=== PATIENT | female | born 1945 | race African-American/Black ===

== ENCOUNTER 2016-07-02 21:17 | Inpatient (IN) | payer MEDICARE, MEDICAID ==
[~2016-07-02] VITALS: Ht 167.6 cm; Wt 140.2 kg
[~2016-07-02 21:17] MED LIST: AMLO-512 PO; ASPI-1093 PO; ATOR40TA28 PO; BUME1TAB30 PO; DSS100 PO; FURO40 PO; GABA-531 PO; HYDR25TA84 PO; IBUP-1546 PO; IPRNEB IH; ISOS20TA9 PO; METF500T4 PO; METO50 PO; SITA100 PO; TRAM50TA4 PO; VALS160T2 PO
[2016-07-02 21:31] LABS: GLUCOSE,POINT OF CARE 119 MG/DL (70-110)
[2016-07-02] MEDS ORDERED: CLOP75 PO (21:36)
[2016-07-02] MEDS ORDERED: DICL75TA5 PO (21:36)
[2016-07-02] MEDS ORDERED: ALBUTEROL SULFATE 5 MG/ML 20 ML NEB SOLN [BULK] NEB ONE ×2 (21:45→23:45)
[2016-07-02] MEDS ORDERED: IPRATROPIUM BROMIDE 0.5 MG/2.5 ML NEB SOLUTION NEB ONE (21:45)
[2016-07-02 22:16] LABS: HEMATOCRIT 27.2 % (36-46); HEMOGLOBIN 8.8 g/dL (12.0-16.0); MEAN CORPUSCULAR HEMOGLOBIN 29.8 pg (26.0-34.0); MEAN CORPUSCULAR HGB CONC 32.3 G/dL (31.0-37.0); MEAN CORPUSCULAR VOLUME 92 fL (80-100); PLATELET COUNT (AUTO) 295 K/uL (150-450); RED BLOOD CELL COUNT(AUTO) 2.95 MIL/uL (4.00-5.20); RED CELL DISTRIBUTION WIDTH 16.5 % (11.5-14.5); WHITE BLOOD COUNT (AUTO) 11.9 K/uL (4.5-11.0)
[2016-07-02] MEDS ORDERED: 0.9% SODIUM CHLORIDE 5 ML NEB SOLUTION NEB ONE (22:26)
[2016-07-02 22:33] LABS: INR 1.1 (0.9-1.1); PROTHROMBIN TIME 11.7 SEC (9.4-11.6)
[2016-07-02 22:34] LABS: ALBUMIN 3.2 g/dL (3.4-5.0); BILIRUBIN,TOTAL 0.3 mg/dL (0.1-1.0); CALCIUM, TOTAL 8.9 mg/dL (8.8-10.5); CREATININE 2.12 mg/dL (0.60-1.30); TOTAL PROTEIN, SERUM 7.8 g/dL (6.4-8.2)
[2016-07-02 22:38] LABS: POTASSIUM 6.6 mmol/L (3.5-5.1)
[2016-07-02 23:02] LABS: BAND NEUTROPHILS % (MANUAL) 7 % (1-5); BASOPHILS % (MANUAL) 1 % (0-2); LYMPHOCYTES % (MANUAL) 8 % (22-44); REACTIVE LYMPHOCYTES 1 % (0-0); TOTAL CELLS COUNTED 100
[2016-07-02 23:04] LABS: RBC MORPHOLOGY COMMENT ABNORMAL RBC MORPH
[2016-07-02] MEDS ORDERED: SODIUM BICARBONATE [ADULT] 8.4% 50 MEQ/50 ML SYRINGE IVP ONE (23:45)
[2016-07-02] MEDS ORDERED: DEXTROSE 50%-WATER 25 GM/50 ML SYRINGE IVP ONE (23:45)
[2016-07-02] MEDS ORDERED: FUROSEMIDE 40 MG/4 ML VIAL IVP ONE (23:45)
[2016-07-02] MEDS ORDERED: INSULIN REGULAR, HUMAN 100 UNITS/ML IVP ONE (23:45)
[2016-07-02] MEDS ORDERED: DEXTROSE 25%-WATER 2.5 GM/10 ML SYRINGE IVP ONE (23:45)
[2016-07-03 00:07] LABS: GLUCOSE,POINT OF CARE 124 MG/DL (70-110)
[2016-07-03 01:50] LABS: APPEARANCE,URINE CLEAR (CLEAR); GLUCOSE, URINE (UA) NEGATIVE (NEGATIVE); KETONES,URINE NEGATIVE (NEGATIVE); LEUKOCYTE ESTERASE ,URINE NEGATIVE (NEGATIVE); OCCULT BLOOD,URINE NEGATIVE (NEGATIVE); PH,URINE 6.5 (5.0-8.0); PROTEIN,URINE NEGATIVE (NEGATIVE)
[2016-07-03 01:58] LABS: ADD UA MICROSCOPIC NO
[2016-07-03 02:31] LABS: CALCIUM, TOTAL 9.3 mg/dL (8.8-10.5); CREATININE 2.03 mg/dL (0.60-1.30); POTASSIUM 5.6 mmol/L (3.5-5.1)
[2016-07-03 02:37] LABS: ALBUMIN 3.4 g/dL (3.4-5.0); BILIRUBIN,TOTAL 0.2 mg/dL (0.1-1.0); TOTAL PROTEIN, SERUM 8.4 g/dL (6.4-8.2)
[2016-07-03 04:21] LABS: GLUCOSE,POINT OF CARE 103 MG/DL (70-110)
[2016-07-03] MEDS ORDERED: ALBUTEROL SULFATE 2.5 MG/0.5 ML NEB SOLUTION NEB PRN (05:15)
[2016-07-03] MEDS ORDERED: OxyCODONE HCL/ACETAMINOPHEN 5-325 MG TABLET PO ONE (05:15)
[2016-07-03] MEDS ORDERED: ONDANSETRON HCL 4 MG/2 ML VIAL IVP PRN (05:30)
[2016-07-03] MEDS ORDERED: 0.9% SODIUM CHLORIDE 10 ML SYRINGE IVP PRN (05:30)
[2016-07-03] MEDS ORDERED: DEXTROSE 50%-WATER 25 GM/50 ML SYRINGE IVP PRN (05:30)
[2016-07-03] MEDS ORDERED: ACETAMINOPHEN 325 MG TABLET PO PRN (05:30)
[2016-07-03] MEDS ORDERED: MAGNESIUM HYDROXIDE SUSPENSION 30 ML UDCUP PO PRN (05:30)
[2016-07-03] MEDS ORDERED: VALSARTAN 160 MG TABLET PO SCH (09:00)
[2016-07-03] MEDS ORDERED: BUMETANIDE 1 MG TABLET PO SCH (09:00)
[2016-07-03] MEDS ORDERED: DOCUSATE SODIUM 100 MG CAPSULE PO SCH (09:00)
[2016-07-03] MEDS: CLOPIDOGREL BISULFATE 75 MG TABLET PO SCH (09:00)
[2016-07-03] MEDS ORDERED: FUROSEMIDE 40 MG/4 ML VIAL IVP ONE (09:15)
[2016-07-03 09:22] LABS: GLUCOSE,POINT OF CARE 86 MG/DL (70-110)
[2016-07-03 09:31] VITALS: BP 102/52
[2016-07-03] MEDS: IPRATROPIUM BROMIDE 0.5 MG/2.5 ML NEB SOLUTION NEB SCH (10:26)
[2016-07-03] MEDS: ALBUTEROL SULFATE 2.5 MG/0.5 ML NEB SOLUTION NEB SCH (10:26)
[2016-07-03 10:36] VITALS: BP 155/73
[2016-07-03] MEDS: PANTOPRAZOLE SODIUM 40 MG/VIAL IVP SCH (10:37)
[2016-07-03] MEDS: HEPARIN SODIUM,PORCINE 5,000 UNITS/ML VIAL SQ SCH ×2 (10:37→20:30)
[2016-07-03] MEDS: AmLODIPine BESYLATE 10 MG TABLET PO SCH (10:44)
[2016-07-03] MEDS: DOCUSATE SODIUM 100 MG CAPSULE PO SCH ×2 (10:44→20:30)
[2016-07-03] MEDS: ASPIRIN 81 MG EC TABLET PO SCH (10:45)
[2016-07-03] MEDS: ISOSORBIDE DINITRATE 10 MG TABLET PO SCH ×3 (10:46→20:29)
[2016-07-03] MEDS: METOPROLOL TARTRATE 50 MG TABLET PO SCH ×2 (10:49→20:30)
[2016-07-03] MEDS: HydrALAZINE HCL 25 MG TABLET PO SCH ×3 (10:49→20:30)
[2016-07-03] MEDS ORDERED: SODIUM POLYSTYRENE SULFONATE 15 GM/60 ML SUSPENSION BOTTLE PO ONE ×2 (11:15→12:30)
[2016-07-03] MEDS: BUMETANIDE 0.25 MG/ML 10 ML VIAL IVP SCH ×2 (12:31→23:00)
[2016-07-03 13:30] VITALS: BP 139/66
[2016-07-03 17:12] LABS: GLUCOSE,POINT OF CARE 105 MG/DL (70-110)
[2016-07-03 17:12] LABS: GLUCOSE,POINT OF CARE 101 MG/DL (70-110)
[2016-07-03 18:33] VITALS: BP 144/72
[2016-07-03] MEDS: OxyCODONE HCL/ACETAMINOPHEN 5-325 MG TABLET PO PRN (19:07)
[2016-07-03 19:42] VITALS: BP 146/82
[2016-07-03] MEDS: ATORVASTATIN CALCIUM 40 MG TABLET PO SCH (20:30)
[2016-07-04] VITALS (7 sets, daily range): BP systolic 114–148; BP diastolic 48–74
[2016-07-04] MEDS: OxyCODONE HCL/ACETAMINOPHEN 5-325 MG TABLET PO PRN ×4 (01:14→20:17)
[2016-07-04] MEDS: ALBUTEROL SULFATE 2.5 MG/0.5 ML NEB SOLUTION NEB SCH ×4 (02:00→20:38)
[2016-07-04] MEDS: IPRATROPIUM BROMIDE 0.5 MG/2.5 ML NEB SOLUTION NEB SCH ×4 (02:00→20:38)
[2016-07-04 06:09] LABS: EOSINOPHILS # (AUTO) 0.17 K/uL (0.00-0.70); EOSINOPHILS % (AUTO) 2.15 % (1.0-6.0); HEMATOCRIT 23.9 % (36-46); LYMPHOCYTES # (AUTO) 1.5 K/uL (1.0-4.8); LYMPHOCYTES % (AUTO) 18.6 % (22.0-44.0); MEAN CORPUSCULAR HEMOGLOBIN 29.9 pg (26.0-34.0); MEAN CORPUSCULAR HGB CONC 33.4 G/dL (31.0-37.0); MEAN CORPUSCULAR VOLUME 90 fL (80-100); MONOCYTES # (AUTO) 0.6 K/uL (0.1-1.0); NEUTROPHILS # (AUTO) 5.7 K/uL (1.8-7.7); NEUTROPHILS % (AUTO) 71.3 % (40.0-70.0); PLATELET COUNT (AUTO) 272 K/uL (150-450); RED BLOOD CELL COUNT(AUTO) 2.66 MIL/uL (4.00-5.20); RED CELL DISTRIBUTION WIDTH 16.9 % (11.5-14.5)
[2016-07-04 06:11] LABS: CALCIUM, TOTAL 8.8 mg/dL (8.8-10.5); CREATININE 1.96 mg/dL (0.60-1.30); MAGNESIUM 2.2 mg/dL (1.80-2.40); PHOSPHORUS 4.4 mg/dL (2.5-4.9); POTASSIUM 5.5 mmol/L (3.5-5.1)
[2016-07-04 06:16] LABS: HEMOGLOBIN A1C 6.6 % (4.5-6.2)
[2016-07-04] MEDS ORDERED: SODIUM POLYSTYRENE SULFONATE 15 GM/60 ML SUSPENSION BOTTLE PO ONE (08:00)
[2016-07-04] MEDS: BUMETANIDE 0.25 MG/ML 10 ML VIAL IVP SCH ×2 (08:09→20:19)
[2016-07-04] MEDS: DOCUSATE SODIUM 100 MG CAPSULE PO SCH ×2 (08:10→20:17)
[2016-07-04] MEDS: PANTOPRAZOLE SODIUM 40 MG/VIAL IVP SCH (08:10)
[2016-07-04] MEDS: HEPARIN SODIUM,PORCINE 5,000 UNITS/ML VIAL SQ SCH ×2 (08:10→20:19)
[2016-07-04] MEDS: ISOSORBIDE DINITRATE 10 MG TABLET PO SCH ×3 (08:11→20:18)
[2016-07-04] MEDS: ASPIRIN 81 MG EC TABLET PO SCH (08:11)
[2016-07-04] MEDS: CLOPIDOGREL BISULFATE 75 MG TABLET PO SCH (08:11)
[2016-07-04] MEDS: HydrALAZINE HCL 25 MG TABLET PO SCH ×4 (08:16→20:52)
[2016-07-04] MEDS: EPOETIN ALFA 10,000 UNITS/ML VIAL SQ SCH (08:17)
[2016-07-04] MEDS ORDERED: FUROSEMIDE 40 MG TABLET PO SCH (09:00)
[2016-07-04 09:37] LABS: GLUCOSE COMMENT 1 Received Meds; GLUCOSE,POINT OF CARE 100 MG/DL (70-110)
[2016-07-04 09:37] LABS: GLUCOSE COMMENT 1 Received Meds; GLUCOSE,POINT OF CARE 149 MG/DL (70-110)
[2016-07-04] MEDS: METOPROLOL TARTRATE 50 MG TABLET PO SCH ×2 (10:30→20:19)
[2016-07-04] MEDS: AmLODIPine BESYLATE 10 MG TABLET PO SCH (10:30)
[2016-07-04] MEDS: ATORVASTATIN CALCIUM 40 MG TABLET PO SCH (20:18)
[2016-07-04] MEDS: INSULIN ASPART 100 UNITS/ML SQ PRN (20:53)
[2016-07-05] MEDS: OxyCODONE HCL/ACETAMINOPHEN 5-325 MG TABLET PO PRN ×2 (01:02→23:11)
[2016-07-05] MEDS: ALBUTEROL SULFATE 2.5 MG/0.5 ML NEB SOLUTION NEB SCH ×4 (02:00→20:00)
[2016-07-05] MEDS: IPRATROPIUM BROMIDE 0.5 MG/2.5 ML NEB SOLUTION NEB SCH ×4 (02:00→20:00)
[2016-07-05 05:04] VITALS: BP 155/79
[2016-07-05 07:31] VITALS: BP 146/70
[2016-07-05 08:02] LABS: GLUCOSE,POINT OF CARE 108 MG/DL (70-110)
[2016-07-05 08:03] LABS: GLUCOSE,POINT OF CARE 124 MG/DL (70-110)
[2016-07-05 08:32] LABS: GLUCOSE,POINT OF CARE 131 MG/DL (70-110)
[2016-07-05 08:39] LABS: CALCIUM, TOTAL 9.4 mg/dL (8.8-10.5); CREATININE 1.67 mg/dL (0.60-1.30); POTASSIUM 4.9 mmol/L (3.5-5.1)
[2016-07-05 08:43] LABS: MAGNESIUM 2.2 mg/dL (1.80-2.40)
[2016-07-05] MEDS: ASPIRIN 81 MG EC TABLET PO SCH (09:01)
[2016-07-05] MEDS: PANTOPRAZOLE SODIUM 40 MG/VIAL IVP SCH (09:01)
[2016-07-05] MEDS: DOCUSATE SODIUM 100 MG CAPSULE PO SCH ×2 (09:01→23:10)
[2016-07-05] MEDS: ISOSORBIDE DINITRATE 10 MG TABLET PO SCH ×3 (09:01→23:10)
[2016-07-05] MEDS: CLOPIDOGREL BISULFATE 75 MG TABLET PO SCH (09:01)
[2016-07-05] MEDS: HEPARIN SODIUM,PORCINE 5,000 UNITS/ML VIAL SQ SCH ×2 (09:01→20:28)
[2016-07-05] MEDS: HydrALAZINE HCL 25 MG TABLET PO SCH ×3 (09:01→23:10)
[2016-07-05] MEDS: METOPROLOL TARTRATE 50 MG TABLET PO SCH ×2 (09:01→20:28)
[2016-07-05] MEDS: AmLODIPine BESYLATE 10 MG TABLET PO SCH (09:01)
[2016-07-05] MEDS: BUMETANIDE 0.25 MG/ML 10 ML VIAL IVP SCH ×2 (09:01→21:00)
[2016-07-05 11:15] VITALS: BP 128/61
[2016-07-05 16:16] VITALS: BP 151/85
[2016-07-05 19:50] VITALS: BP 148/80
[2016-07-05] MEDS: ATORVASTATIN CALCIUM 40 MG TABLET PO SCH (23:10)
[2016-07-06] VITALS (7 sets, daily range): BP systolic 131–150; BP diastolic 71–82
[2016-07-06] MEDS: IPRATROPIUM BROMIDE 0.5 MG/2.5 ML NEB SOLUTION NEB SCH ×4 (02:00→20:00)
[2016-07-06] MEDS: ALBUTEROL SULFATE 2.5 MG/0.5 ML NEB SOLUTION NEB SCH ×4 (02:00→20:00)
[2016-07-06] MEDS: OxyCODONE HCL/ACETAMINOPHEN 5-325 MG TABLET PO PRN ×2 (06:29→20:30)
[2016-07-06 06:54] LABS: CALCIUM, TOTAL 9.4 mg/dL (8.8-10.5); CREATININE 1.52 mg/dL (0.60-1.30); POTASSIUM 4.2 mmol/L (3.5-5.1)
[2016-07-06] MEDS: METOPROLOL TARTRATE 50 MG TABLET PO SCH ×2 (08:10→20:29)
[2016-07-06] MEDS: ASPIRIN 81 MG EC TABLET PO SCH (08:10)
[2016-07-06] MEDS: CLOPIDOGREL BISULFATE 75 MG TABLET PO SCH (08:10)
[2016-07-06] MEDS: ISOSORBIDE DINITRATE 10 MG TABLET PO SCH ×3 (08:10→20:28)
[2016-07-06] MEDS: DOCUSATE SODIUM 100 MG CAPSULE PO SCH ×2 (08:11→20:29)
[2016-07-06] MEDS: HEPARIN SODIUM,PORCINE 5,000 UNITS/ML VIAL SQ SCH ×2 (08:11→20:27)
[2016-07-06] MEDS: HydrALAZINE HCL 25 MG TABLET PO SCH ×3 (08:11→20:36)
[2016-07-06] MEDS: AmLODIPine BESYLATE 10 MG TABLET PO SCH (08:11)
[2016-07-06] MEDS: BUMETANIDE 0.25 MG/ML 10 ML VIAL IVP SCH ×2 (08:18→20:36)
[2016-07-06] MEDS: PANTOPRAZOLE SODIUM 40 MG/VIAL IVP SCH (08:18)
[2016-07-06 12:28] LABS: GLUCOSE,POINT OF CARE 120 MG/DL (70-110)
[2016-07-06] MEDS: INSULIN ASPART 100 UNITS/ML SQ PRN ×2 (17:53→20:31)
[2016-07-06 20:07] LABS: GLUCOSE,POINT OF CARE 143 MG/DL (70-110)
[2016-07-06 20:12] LABS: GLUCOSE COMMENT 1 Received Meds; GLUCOSE,POINT OF CARE 174 MG/DL (70-110)
[2016-07-06 20:23] LABS: GLUCOSE COMMENT 1 Received Meds; GLUCOSE,POINT OF CARE 152 MG/DL (70-110)
[2016-07-06 20:23] LABS: GLUCOSE,POINT OF CARE 144 MG/DL (70-110)
[2016-07-06 20:23] LABS: GLUCOSE COMMENT 1 Received Meds; GLUCOSE,POINT OF CARE 177 MG/DL (70-110)
[2016-07-06] MEDS: ATORVASTATIN CALCIUM 40 MG TABLET PO SCH (20:28)
[2016-07-07 00:21] VITALS: BP 165/109
[2016-07-07] MEDS: IPRATROPIUM BROMIDE 0.5 MG/2.5 ML NEB SOLUTION NEB SCH ×3 (02:55→14:00)
[2016-07-07] MEDS: ALBUTEROL SULFATE 2.5 MG/0.5 ML NEB SOLUTION NEB SCH ×3 (02:55→14:00)
[2016-07-07] MEDS: OxyCODONE HCL/ACETAMINOPHEN 5-325 MG TABLET PO PRN (03:48)
[2016-07-07 05:10] VITALS: BP 152/80
[2016-07-07 07:30] LABS: CALCIUM, TOTAL 9.5 mg/dL (8.8-10.5); CREATININE 1.5 mg/dL (0.60-1.30); POTASSIUM 4.2 mmol/L (3.5-5.1)
[2016-07-07 07:39] VITALS: BP 154/80
[2016-07-07] MEDS: PANTOPRAZOLE SODIUM 40 MG/VIAL IVP SCH (08:28)
[2016-07-07] MEDS: HEPARIN SODIUM,PORCINE 5,000 UNITS/ML VIAL SQ SCH (08:28)
[2016-07-07] MEDS: CLOPIDOGREL BISULFATE 75 MG TABLET PO SCH (08:29)
[2016-07-07] MEDS: AmLODIPine BESYLATE 10 MG TABLET PO SCH (08:30)
[2016-07-07] MEDS: ASPIRIN 81 MG EC TABLET PO SCH (08:30)
[2016-07-07] MEDS: METOPROLOL TARTRATE 50 MG TABLET PO SCH (08:30)
[2016-07-07] MEDS: DOCUSATE SODIUM 100 MG CAPSULE PO SCH (08:30)
[2016-07-07] MEDS: ISOSORBIDE DINITRATE 10 MG TABLET PO SCH ×2 (09:00→16:33)
[2016-07-07] MEDS: BUMETANIDE 0.25 MG/ML 10 ML VIAL IVP SCH (10:41)
[2016-07-07] MEDS: HydrALAZINE HCL 25 MG TABLET PO SCH ×2 (10:41→16:00)
[2016-07-07] MEDS: EPOETIN ALFA 10,000 UNITS/ML VIAL SQ SCH (10:41)
[2016-07-07 11:57] LABS: GLUCOSE,POINT OF CARE 110 MG/DL (70-110)
[2016-07-07 12:02] LABS: GLUCOSE COMMENT 1 Received Meds; GLUCOSE,POINT OF CARE 118 MG/DL (70-110)
[2016-07-07 13:04] VITALS: BP 163/91
[2016-07-07] MEDS: INSULIN ASPART 100 UNITS/ML SQ PRN (17:08)
[2016-07-07 17:21] LABS: GLUCOSE,POINT OF CARE 167 MG/DL (70-110)
[2016-07-07] MEDS ORDERED: ATOR40TA28 PO (17:48)
[2016-07-07] MEDS ORDERED: PANT40TA25 PO (17:52)
[2016-07-07] MEDS ORDERED: ACET-784 PO (17:53)
[2016-08-11] MEDS ORDERED: HYDR25TA84 PO (09:24)
== END 2016-07-07 17:20 | DRG 682 ==
LOC: EMS 21:18 → AHU 07-03 07:03 → 5N 07-03 18:15 → 6N 07-06 23:49
PROVIDERS: ADMIT Internal Medicine; ATTEND Internal Medicine
DX: N17.0 Acute kidney failure with tubular necrosis (principal); I50.33 Acute on chronic diastolic (congestive) heart failure; E44.0 Moderate protein-calorie malnutrition; I13.0 Hypertensive heart and chronic kidney disease with heart failure and stage 1 through stage 4 chronic kidney disease, or unspecified chronic kidney disease; E87.2 Acidosis; Z68.42 Body mass index [BMI] 45.0-49.9, adult; E11.22 Type 2 diabetes mellitus with diabetic chronic kidney disease; E66.01 Morbid (severe) obesity due to excess calories; N18.9 Chronic kidney disease, unspecified; E78.00 Pure hypercholesterolemia, unspecified; E87.5 Hyperkalemia; D64.9 Anemia, unspecified; E78.5 Hyperlipidemia, unspecified; Z79.899 Other long term (current) drug therapy; Z79.51 Long term (current) use of inhaled steroids; Z79.82 Long term (current) use of aspirin; Z79.02 Long term (current) use of antithrombotics/antiplatelets; Z79.1 Long term (current) use of non-steroidal anti-inflammatories (NSAID); Z79.84 Long term (current) use of oral hypoglycemic drugs; T39.395A Adverse effect of other nonsteroidal anti-inflammatory drugs [NSAID], initial encounter; Y92.89 Other specified places as the place of occurrence of the external cause; Y93.89 Activity, other specified; Y99.8 Other external cause status
CPT/HCPCS: 76770; 82271; 82962; 83036; 83540; 83550; 83735; 84100; 93005; 93306; 93970; 94640; 94644; 96374; 96375; 97162; 99291; C9113; J0885; J1644; J1815; J1940; J3490

== ENCOUNTER 2016-08-11 09:11 | Emergency (ER) | payer MEDICARE, MEDICAID ==
[~2016-08-11] VITALS: Ht 167.6 cm; Wt 127.3 kg
[~2016-08-11 09:11] MED LIST changes: +ACET-784 PO; +CLOP75 PO; +DICL75TA5 PO; +HYDR25 PO; -HYDR25TA84 PO; +PANT40TA25 PO
[2016-08-11] MEDS ORDERED: HYDR25 PO (09:24)
[2016-08-11] MEDS ORDERED: KETOROLAC TROMETHAMINE 60 MG/2 ML VIAL IM ONE (09:30)
[2016-08-11 09:37] LABS: GLUCOSE,POINT OF CARE 114 MG/DL (70-110)
[2016-08-11 12:44] VITALS: BP 132/65
== END 2016-08-11 12:46 | disposition home or self-care (01) ==
LOC: EMS 09:14
DX: M25.521 Pain in right elbow (principal); I11.0 Hypertensive heart disease with heart failure; I50.9 Heart failure, unspecified; E11.9 Type 2 diabetes mellitus without complications; E78.00 Pure hypercholesterolemia, unspecified; Z79.82 Long term (current) use of aspirin
CPT/HCPCS: 82962; 96372; 99283; J1885